=== PATIENT | female | born 1965 | race Caucasian/White ===

== ENCOUNTER 2021-01-30 11:04 | Observation (INO) ==
[2021-01-30] MEDS ORDERED: NS 0.9% 1000 ml BAG 1,000 ML IV ONE (11:33)
[2021-01-30 11:44] LABS: ABS Basophils 0.1 10^3/ul (0-0.2); ABS Eosinophils 0.1 10^3/ul (0-0.6); ABS Monocytes 1.1 10^3/ul (0-0.8); ABS Neutrophils 9.2 10^3/ul (1.5-7.7); Eosinophil % 0.8 %; Hematocrit 40 % (35-47); Hemoglobin 13.6 g/dL (12.0-16.0); Lymphocyte % 16.2 %; Mean Corpuscular HGB Conc 34 g/dL (31-36); Mean Corpuscular Hemoglobin 28 pg (27-31); Mean Corpuscular Volume 84 fL (80-97); Mean Platelet Volume 7.7 fL (7.4-10.4); Platelet Count 342 10^3/uL (150-450); Red Blood Count 4.81 10^6 /uL (3.70-4.87); Red Cell Distribution Width 14 % (10-15); White Blood Count 12.5 10^3/uL (3.5-10.8)
[2021-01-30 11:59] LABS: ALT 29 U/L (7-52); AST 19 U/L (13-39); Albumin 3.8 g/dL (3.2-5.2); Alkaline Phosphatase 60 U/L (35-149); Anion Gap 9 mmol/L (2-11); Blood Urea Nitrogen 12 mg/dL (6-24); C Reactive Protein 142.84 mg/L (<8.01); CO2 Carbon Dioxide 22 mmol/L (22-32); Calcium 9.3 mg/dL (8.6-10.3); Chloride 105 mmol/L (101-111); Glucose 132 mg/dL (70-100); Lipase < 10 U/L (11.0-82.0); Potassium 4.1 mmol/L (3.5-5.0); Sodium 136 mmol/L (135-145); Total Protein 7.8 g/dL (6.4-8.9)
[2021-01-30] MEDS ORDERED: Iodixanol (CONTRAST) 320 MG/ML 100 ML SDV IV ONE (12:03)
[2021-01-30] MEDS ORDERED: Piperacillin/Tazobac ADVAN 3.375 GM in NS 0.9% 100 ml BAG 100 ML IVPB ONE (14:57)
[2021-01-30] MEDS ORDERED: Lactated Ringers 1000 ml BAG 1,000 ML IV ONE (14:58)
[2021-01-30] MEDS ORDERED: Piperacillin/Tazobac 3.375 GM BAG ONE (15:40)
[2021-01-30 16:03] LABS: Rapid COVID-19 Molecular Undetected (Undetected)
[2021-01-30] MEDS ORDERED: Albuterol/Ipratropium NEB.SOL (2.5/0.5 MG) 3 ML NEB.SOLN INH PRN (16:06)
[2021-01-30] MEDS: NS 0.9% 1000 ml BAG 1,000 ML IV SCH (17:52)
[2021-01-30] MEDS: Budesonide NEB 0.5 MG/2 ML NEB.SOLN INH SCH (19:04)
[2021-01-30] MEDS ORDERED: HYDROmorphone 1 MG/1 ML SYRINGE IV PRN (19:54)
[2021-01-30] MEDS: ARFORMOTEROL 15 MCG/2 ML INH SCH (19:57)
[2021-01-30] MEDS: Piperacillin/Tazobac ADVAN 3.375 GM in NS 0.9% 100 ml BAG 100 ML IV SCH (19:58)
[2021-01-30] MEDS: Ondansetron 4 mg VIAL 2 MG/ML 2 ml VIAL IV PRN (23:58)
[2021-01-31] MEDS: NS 0.9% 1000 ml BAG 1,000 ML IV SCH ×3 (02:29→23:26)
[2021-01-31] MEDS: Piperacillin/Tazobac ADVAN 3.375 GM in NS 0.9% 100 ml BAG 100 ML IV SCH ×3 (03:10→19:50)
[2021-01-31] MEDS: Albuterol 2.5mg/3 ml (0.083%) NEB.SOLN INH PRN ×2 (03:22→16:15)
[2021-01-31 06:39] LABS: ABS Eosinophils 0.1 10^3/ul (0-0.6); ABS Lymphocytes 1.4 10^3/ul (1.0-4.8); ABS Monocytes 0.9 10^3/ul (0-0.8); Eosinophil % 0.6 %; Hematocrit 33 % (35-47); Hemoglobin 11.2 g/dL (12.0-16.0); Lymphocyte % 12.2 %; Mean Corpuscular HGB Conc 34 g/dL (31-36); Mean Corpuscular Hemoglobin 29 pg (27-31); Mean Corpuscular Volume 85 fL (80-97); Mean Platelet Volume 7.6 fL (7.4-10.4); Platelet Count 263 10^3/uL (150-450); Red Blood Count 3.93 10^6 /uL (3.70-4.87); Red Cell Distribution Width 14 % (10-15); White Blood Count 11.4 10^3/uL (3.5-10.8)
[2021-01-31 06:45] LABS: INR 1.28 (0.86-1.15)
[2021-01-31 06:56] LABS: Calcium 8.3 mg/dL (8.6-10.3); Potassium 3.7 mmol/L (3.5-5.0)
[2021-01-31] MEDS: Ondansetron 4 mg VIAL 2 MG/ML 2 ml VIAL IV PRN (08:35)
[2021-01-31] MEDS: Budesonide NEB 0.5 MG/2 ML NEB.SOLN INH SCH ×2 (08:59→19:03)
[2021-01-31] MEDS: SPIRIVA Respimat (tiotropium) 2.5 mcg/inh Inhaler INH SCH (09:00)
[2021-01-31] MEDS ORDERED: fentaNYL 100 mcg/2 ml 50 MCG/ML VIAL ONE ×2 (09:39→10:46)
[2021-01-31] MEDS ORDERED: Ondansetron 4 mg VIAL 2 MG/ML 2 ml VIAL ONE (10:36)
[2021-01-31] MEDS: ARFORMOTEROL 15 MCG/2 ML INH SCH ×2 (12:07→19:03)
[2021-01-31] MEDS: oxyCODONE/Acetamin 5/325 mg TAB PO PRN ×2 (17:55→23:26)
[2021-02-01] MEDS: Piperacillin/Tazobac ADVAN 3.375 GM in NS 0.9% 100 ml BAG 100 ML IV SCH ×3 (04:36→20:12)
[2021-02-01] MEDS: Albuterol 2.5mg/3 ml (0.083%) NEB.SOLN INH PRN (05:01)
[2021-02-01] MEDS: NS 0.9% 1000 ml BAG 1,000 ML IV SCH ×2 (07:34→16:18)
[2021-02-01] MEDS: oxyCODONE/Acetamin 5/325 mg TAB PO PRN ×3 (09:12→20:12)
[2021-02-01] MEDS: SPIRIVA Respimat (tiotropium) 2.5 mcg/inh Inhaler INH SCH (09:51)
[2021-02-01] MEDS: Budesonide NEB 0.5 MG/2 ML NEB.SOLN INH SCH ×2 (09:51→20:08)
[2021-02-01] MEDS: ARFORMOTEROL 15 MCG/2 ML INH SCH ×2 (09:54→20:10)
[2021-02-01] MEDS ORDERED: Calcium Carb (TUMS) 500 mg CHEW TAB PO PRN (22:20)
[2021-02-02] MEDS: NS 0.9% 1000 ml BAG 1,000 ML IV SCH ×2 (00:48→09:00)
[2021-02-02] MEDS: Piperacillin/Tazobac ADVAN 3.375 GM in NS 0.9% 100 ml BAG 100 ML IV SCH (04:05)
[2021-02-02] MEDS: oxyCODONE/Acetamin 5/325 mg TAB PO PRN (05:15)
[2021-02-02] MEDS: Albuterol 2.5mg/3 ml (0.083%) NEB.SOLN INH PRN (05:40)
[2021-02-02] MEDS: Budesonide NEB 0.5 MG/2 ML NEB.SOLN INH SCH (07:03)
[2021-02-02] MEDS: SPIRIVA Respimat (tiotropium) 2.5 mcg/inh Inhaler INH SCH (07:03)
[2021-02-02 07:57] VITALS: BP 129/59
[2021-02-02] MEDS: ARFORMOTEROL 15 MCG/2 ML INH SCH (10:40)
== END 2021-02-02 11:30 | disposition home or self-care (01) ==
LOC: SSU 11:04 → ED 11:04 → SSU 17:16
PROVIDERS: ADMIT Surgery; ATTEND Surgery

== ENCOUNTER 2021-03-11 16:26 | Inpatient (IN) ==
[2021-03-11] MEDS ORDERED: Dexamethasone IV 10 MG in NS 0.9% 50 ML 50 ML IVPB ONE (19:47)
[2021-03-11] MEDS ORDERED: Azithromycin 500 mg/250 ml NS 500 MG/250 ML BAG IVPB ONE (21:33)
[2021-03-11] MEDS ORDERED: cefTRIAXone 1 gm/50 mL NS BAG 1 GM/50 ML BAG IV ONE (21:33)
[2021-03-11 22:29] LABS: ABS Eosinophils 0.1 10^3/ul (0-0.6); ABS Lymphocytes 1.2 10^3/ul (1.0-4.8); ABS Neutrophils 7.6 10^3/ul (1.5-7.7); Eosinophil % 0.6 %; Hematocrit 37 % (35-47); Hemoglobin 12.6 g/dL (12.0-16.0); Lymphocyte % 12.3 %; Mean Corpuscular HGB Conc 34 g/dL (31-36); Mean Corpuscular Hemoglobin 28 pg (27-31); Mean Corpuscular Volume 84 fL (80-97); Mean Platelet Volume 7.8 fL (7.4-10.4); Platelet Count 296 10^3/uL (150-450); Red Blood Count 4.44 10^6 /uL (3.70-4.87); Red Cell Distribution Width 15 % (10-15); White Blood Count 9.8 10^3/uL (3.5-10.8)
[2021-03-11 22:49] LABS: Albumin 3.9 g/dL (3.2-5.2); Albumin/Globulin Ratio 1.1 (1-3); C Reactive Protein 93.92 mg/L (<8.01); Calcium 9.3 mg/dL (8.6-10.3); Globulin 3.5 g/dL (2-4); Potassium 3.4 mmol/L (3.5-5.0); Total Bilirubin 0.8 mg/dL (0.2-1.0); Total Protein 7.4 g/dL (6.4-8.9)
[2021-03-11 22:53] LABS: INR 1.18 (0.86-1.15)
[2021-03-11] MEDS ORDERED: Iodixanol (CONTRAST) 320 MG/ML 100 ML SDV IV ONE (23:35)
[2021-03-12] MEDS ORDERED: cefTRIAXone 1 gm/50 mL NS BAG 1 GM/50 ML BAG IVPB ONE (03:39)
[2021-03-12] MEDS ORDERED: Azithromycin 500 mg/250 ml NS 500 MG/250 ML BAG IVPB SCH ×2 (04:00→22:00)
[2021-03-12] MEDS ORDERED: Albuterol/Ipratropium NEB.SOL (2.5/0.5 MG) 3 ML NEB.SOLN INH ONE (04:33)
[2021-03-12] MEDS ORDERED: Ondansetron 4 mg VIAL 2 MG/ML 2 ml VIAL IV PRN (05:08)
[2021-03-12] MEDS ORDERED: Albuterol/Ipratropium NEB.SOL (2.5/0.5 MG) 3 ML NEB.SOLN INH PRN ×2 (05:10→13:46)
[2021-03-12] MEDS ORDERED: Dextrose 50% Syringe 50 ml 25 GM/50 ML SYRINGE IV PUSH PRN (05:18)
[2021-03-12 05:19] LABS: Rapid COVID-19 Molecular Detected (Undetected)
[2021-03-12] MEDS ORDERED: Arformoterol (NF) 15 MCG/2 ML NEB.SOLN INH SCH (07:00)
[2021-03-12] MEDS: Enoxaparin 40 MG/0.4 ML SYR SUBCUT SCH (08:00)
[2021-03-12] MEDS: Budesonide NEB 0.5 MG/2 ML NEB.SOLN INH SCH ×2 (08:27→20:47)
[2021-03-12] MEDS ORDERED: methylPREDNISolone SOD 40 mg/ml 1 ml VIAL IV SCH (09:00)
[2021-03-12] MEDS: SPIRIVA Respimat (tiotropium) 2.5 mcg/inh Inhaler INH SCH ×2 (11:41→13:28)
[2021-03-12] MEDS ORDERED: Potassium Chlor 10 meq TAB PO ONE (12:24)
[2021-03-12] MEDS: Albuterol HFA INHALER 8 gm MDI INH PRN (13:38)
[2021-03-12] MEDS: methylPREDNISolone SOD 40 mg/ml 1 ml VIAL IV SCH ×2 (14:43→22:22)
[2021-03-13] MEDS: ARFORMOTEROL 15 MCG/2 ML INH SCH ×2 (00:15→08:43)
[2021-03-13] MEDS: Budesonide NEB 0.5 MG/2 ML NEB.SOLN INH SCH ×3 (00:23→20:04)
[2021-03-13] MEDS: Albuterol HFA INHALER 8 gm MDI INH PRN (00:32)
[2021-03-13] MEDS: methylPREDNISolone SOD 40 mg/ml 1 ml VIAL IV SCH (05:51)
[2021-03-13] MEDS: Albuterol/Ipratropium NEB.SOL (2.5/0.5 MG) 3 ML NEB.SOLN INH PRN ×3 (06:26→16:40)
[2021-03-13] MEDS: SPIRIVA Respimat (tiotropium) 2.5 mcg/inh Inhaler INH SCH (07:43)
[2021-03-13] MEDS: Enoxaparin 40 MG/0.4 ML SYR SUBCUT SCH (08:43)
[2021-03-13] MEDS ORDERED: Magnesium Sulfate 2 gm BAG 2 GM/50 ML BAG IVPB ONE (12:22)
[2021-03-13] MEDS: FORMOTEROL INH SCH (20:04)
[2021-03-14] MEDS: Albuterol/Ipratropium NEB.SOL (2.5/0.5 MG) 3 ML NEB.SOLN INH PRN ×3 (05:38→17:20)
[2021-03-14] MEDS: SPIRIVA Respimat (tiotropium) 2.5 mcg/inh Inhaler INH SCH (05:44)
[2021-03-14 05:50] LABS: ABS Lymphocytes 1.3 10^3/ul (1.0-4.8); ABS Monocytes 0.5 10^3/ul (0-0.8); ABS Neutrophils 8.4 10^3/ul (1.5-7.7); Hematocrit 36 % (35-47); Hemoglobin 12.2 g/dL (12.0-16.0); Lymphocyte % 12.4 %; Mean Corpuscular HGB Conc 34 g/dL (31-36); Mean Corpuscular Hemoglobin 28 pg (27-31); Mean Corpuscular Volume 84 fL (80-97); Mean Platelet Volume 7.9 fL (7.4-10.4); Platelet Count 372 10^3/uL (150-450); Red Blood Count 4.32 10^6 /uL (3.70-4.87); Red Cell Distribution Width 14 % (10-15); White Blood Count 10.3 10^3/uL (3.5-10.8)
[2021-03-14 06:08] LABS: Albumin 3.5 g/dL (3.2-5.2); Calcium 8.9 mg/dL (8.6-10.3); Globulin 3.4 g/dL (2-4); Magnesium 2.2 mg/dL (1.9-2.7); Phosphorus 3.4 mg/dL (2.5-5.0); Total Bilirubin 0.4 mg/dL (0.2-1.0); Total Protein 6.9 g/dL (6.4-8.9)
[2021-03-14] MEDS: FORMOTEROL INH SCH ×2 (08:33→19:47)
[2021-03-14] MEDS: Budesonide NEB 0.5 MG/2 ML NEB.SOLN INH SCH ×2 (08:33→19:50)
[2021-03-14] MEDS: Enoxaparin 40 MG/0.4 ML SYR SUBCUT SCH (09:19)
[2021-03-14] MEDS: Albuterol HFA INHALER 8 gm MDI INH PRN (12:10)
[2021-03-15 05:33] LABS: Hematocrit 36 % (35-47); Hemoglobin 11.9 g/dL (12.0-16.0); Mean Corpuscular HGB Conc 33 g/dL (31-36); Mean Corpuscular Hemoglobin 28 pg (27-31); Mean Corpuscular Volume 85 fL (80-97); Mean Platelet Volume 7.6 fL (7.4-10.4); Platelet Count 358 10^3/uL (150-450); Red Blood Count 4.19 10^6 /uL (3.70-4.87); Red Cell Distribution Width 14 % (10-15); White Blood Count 9.7 10^3/uL (3.5-10.8)
[2021-03-15 05:41] LABS: Calcium 8.8 mg/dL (8.6-10.3); Potassium 3.7 mmol/L (3.5-5.0); eGFR CKD-EPI 105.6 (>60)
[2021-03-15] MEDS: Enoxaparin 40 MG/0.4 ML SYR SUBCUT SCH (08:24)
[2021-03-15] MEDS: SPIRIVA Respimat (tiotropium) 2.5 mcg/inh Inhaler INH SCH (09:15)
[2021-03-15] MEDS: FORMOTEROL INH SCH ×2 (09:15→20:22)
[2021-03-15] MEDS: Budesonide NEB 0.5 MG/2 ML NEB.SOLN INH SCH ×2 (09:15→20:22)
[2021-03-15] MEDS ORDERED: Albuterol HFA INHALER 8 gm MDI INH PRN (16:51)
[2021-03-15] MEDS: Albuterol/Ipratropium NEB.SOL (2.5/0.5 MG) 3 ML NEB.SOLN INH PRN (17:16)
[2021-03-16 07:19] LABS: Hematocrit 38 % (35-47); Hemoglobin 12.7 g/dL (12.0-16.0); Mean Corpuscular HGB Conc 33 g/dL (31-36); Mean Corpuscular Hemoglobin 28 pg (27-31); Mean Corpuscular Volume 84 fL (80-97); Mean Platelet Volume 7.3 fL (7.4-10.4); Platelet Count 425 10^3/uL (150-450); Red Blood Count 4.53 10^6 /uL (3.70-4.87); Red Cell Distribution Width 14 % (10-15); White Blood Count 10.3 10^3/uL (3.5-10.8)
[2021-03-16] MEDS: SPIRIVA Respimat (tiotropium) 2.5 mcg/inh Inhaler INH SCH (07:34)
[2021-03-16] MEDS: Budesonide NEB 0.5 MG/2 ML NEB.SOLN INH SCH (07:34)
[2021-03-16 07:42] LABS: Calcium 8.9 mg/dL (8.6-10.3); Potassium 3.6 mmol/L (3.5-5.0); eGFR CKD-EPI 106.4 (>60)
[2021-03-16] MEDS: FORMOTEROL INH SCH (08:07)
[2021-03-16] MEDS: Enoxaparin 40 MG/0.4 ML SYR SUBCUT SCH (08:47)
[2021-03-16 12:47] VITALS: BP 133/65
== END 2021-03-16 15:05 | disposition home or self-care (01) | DRG 140 ==
LOC: EDHOLD 16:26 → ED 16:26 → SUATTDRO 03-12 05:20 → MED 03-12 11:06
PROVIDERS: ADMIT Student in an Organized Health Care Education/Training Program; ATTEND Internal Medicine